=== PATIENT | male | born 1945 | race Caucasian/White ===

== ENCOUNTER 2018-02-12 16:35 | Emergency (ER) | payer OTHER ==
[~2018-02-12] VITALS: Ht 172.7 cm; Wt 91.0 kg
[2018-02-12 16:39] VITALS: BP 236/97; PULSE 74; RESP 16; O2SAT 98
--- NOTE | 2018-02-12 17:30 | RADRPT ---
EXAM DATE/TIME: 02/12/2018 17:06 [facility] COMPARISON: No previous studies available for comparison. INDICATIONS : Hand was slammed in heavy door. Complains of left hand pain. MEDICAL HISTORY : None. SURGICAL HISTORY : None. ENCOUNTER: Initial ACUITY: 1 day PAIN SCORE: 10/10 LOCATION: Left hand FINDINGS: Three view examination of the left hand demonstrates no soft tissue swelling, dislocation, or fractur e. The carpal bones appear intact. The interphalangeal and metacarpophalangeal joints are arthriti c. Bony mineralization is normal. CONCLUSION: 1. No acute findings. 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 Momo Bobby MD on February 12, 2018 at 17:27 Board Certified Radiologist. This report was verified electronically.
--- NOTE | 2018-02-12 17:32 | RADRPT ---
EXAM DATE/TIME: 02/12/2018 17:06 [facility] COMPARISON: No previous studies available for comparison. INDICATIONS : Left wrist pain. Hand and wrist were slammed in heavy door. MEDICAL HISTORY : None. SURGICAL HISTORY : None. ENCOUNTER: Initial ACUITY: 1 day PAIN SCORE: 10/10 LOCATION: Left lateral wrist FINDINGS: Three view examination of the left wrist demonstrates no soft tissue swelling, dislocation, or fractu re. The carpal bones are in normal alignment. The joint spaces are maintained. Bony mineralization is normal. CONCLUSION: 1. Mild osteoarthritis of the left wrist. Momo Bobby MD on February 12, 2018 at 17:28 Board Certified Radiologist. This report was verified electronically.
[2018-02-12] MEDS ORDERED: TRAM50 PO (17:45)
[2018-02-12] MEDS ORDERED: ACETAMINOPHEN/HYDROcodone 325 MG/5 MG TAB PO ONE (17:45)
--- NOTE | 2018-02-12 17:46 | PD ---
HPI Chief Complaint: Injury Time Seen by Provider: 16:54 Travel History International Travel<30 days: No Contact w/Intl Traveler<30days: No Traveled to known affect area: No History of Present Illness HPI 72-year-old male here with left hand and wrist pain after his hand was closed in a slider door. He reports constant, throbbing pain localized to the thumb and medial aspect of the wrist. Pain is nonradiating. Pain is worse with palpation of the area and range of motion of the thumb and wrist. Symptom severity is moderate. Denies paresthesia or weakness of the wrist or hand. PFSH Past Medical History Medical History: Denies Significant Hx Past Surgical History Surgical History: No Previous Surgery Social History Alcohol Use: No Tobacco Use: No Substance Use: No Allergies-Medications (Allergen,Severity, Reaction): Coded Allergies: No Known Allergies (Unverified , 02/12/18) Reported Meds & Prescriptions Reported Meds & Active Scripts Active No Active Prescriptions or Reported Medications Review of Systems Except as stated in HPI: all other systems reviewed are Neg General / Constitutional: No: Fever Eyes: No: Visual changes HENT: No: Headaches Cardiovascular: No: Chest Pain or Discomfort Respiratory: No: Shortness of Breath Gastrointestinal: No: Abdominal Pain Genitourinary: No: Dysuria Physical Exam Narrative GENERAL: Alert and well-appearing 9-year-old male SKIN: Warm and dry. Abrasion to the dorsal aspect of the thumb. HEAD: Normocephalic. EYES: No injection or drainage. NECK: Supple CARDIOVASCULAR: Regular rate and rhythm without murmurs, gallops, or rubs. RESPIRATORY: Breath sounds equal bilaterally. No accessory muscle use. GASTROINTESTINAL: Abdomen soft, non-tender, nondistended. MUSCULOSKELETAL: No cyanosis. LUE: +TTP and swelling to the dorsal aspect of the thumb and medial aspect of the wrist. No deformity. Patient is able to flex and extend the wrist and thumb. Sensation with fine/dull differentiation intact. Palpable radial pulse. normal coloration. Brisk cap refill. Data Data Last Documented VS Vital Signs Date Time Temp Pulse Resp B/P (MAP) Pulse Ox O2 Delivery O2 Flow Rate FiO2 02/12/18 16:39 74 16 236/97 (143) 98 Orders Orders Hand, Complete ([id number]) (02/12/18 ) Wrist, Complete ([id number]) (02/12/18 ) Acetamin-Hydrocod 325-5 Mg ([place] 5-325 (02/12/18 17:45) Support Splint (02/12/18 17:38) MDM Medical Decision Making Medical Screen Exam Complete: Yes Emergency Medical Condition: Yes Differential Diagnosis Contusion, fracture, sprain Narrative Course 72-year-old male with left hand and wrist pain after extremity was closed in a sliding glass door. X-rays are negative for fracture. The extremity is neurovascularly intact. He has normal sensation and full range of motion of the wrist and fingers. He was given a sling to elevate the extremity. Pain medication as needed. Follow-up with his primary doctor. Return precautions discussed. Diagnosis Primary Impression: Contusion of left upper extremity Qualified Codes: S40.022A - Contusion of left upper arm, initial encounter Referrals: Primary Care Physician Additional Instructions: Follow-up with your doctor Use a sling to elevate the extremity Ice the extremity Pain medication as directed Return if you have new or worsening symptoms Scripts Tramadol (Ultram) 50 Mg Tab 50 MG PO Q6H Y for PAIN, #12 TAB 0 Refills Prov: Katie Gates 02/12/18 Disposition: 01 DISCHARGE HOME Condition: Stable Katie Gates Feb 12, 2018 17:46
== END 2018-02-12 17:51 | disposition home or self-care (01) ==
LOC: PHEFT 16:35
DX: S60.212A Contusion of left wrist, initial encounter (principal); S60.319A Abrasion of unspecified thumb, initial encounter; W23.0XXA Caught, crushed, jammed, or pinched between moving objects, initial encounter
CPT/HCPCS: 73110; 73130; 99283